=== PATIENT | female | born 1980 | race Caucasian/White ===

== ENCOUNTER 2019-08-22 17:32 | Emergency (ER) | payer OTHER ==
[~2019-08-22] VITALS: Ht 168.9 cm; Wt 108.7 kg
--- NOTE | 2019-08-22 18:03 | PHYS DOC ---
Adult General Chief Complaint Chief Complaint: SKIN RASH/ABSCESS HPI HPI 39-year-old female presents with abscess on the right upper shoulder. She went to urgent care 3 days ago where they lanced the wound and placed her on Bactrim. She does feel like it is getting smaller. The redness that was around it has decreased. It still is angry and there is a palpable firm area. She is also make sure it does not need to be drained again. The patient is leaving town. She was given 10 days of antibiotics. The culture is not back yet. She denies any other injuries or complaints. She has no fever or chills. Review of Systems Review of Systems Constitutional: Denies fever or chills [] Eyes: Denies change in visual acuity, redness, or eye pain [] HENT: Denies nasal congestion or sore throat [] Respiratory: Denies cough or shortness of breath [] Cardiovascular: No additional information not addressed in HPI [] GI: Denies abdominal pain, nausea, vomiting, bloody stools or diarrhea [] : Denies dysuria or hematuria [] Musculoskeletal: Denies back pain or joint pain [] Integument: Abscess right superior shoulder[] Neurologic: Denies headache, focal weakness or sensory changes [] Endocrine: Denies polyuria or polydipsia [] All other systems were reviewed and found to be within normal limits, except as documented in this note. Allergies Allergies Allergies Coded Allergies Type Severity Reaction Last Updated Verified No Known Drug Allergies 08/22/19 No Physical Exam Physical Exam Constitutional: Well developed, well nourished, no acute distress, non-toxic appearance. [] HENT: Normocephalic, atraumatic, bilateral external ears normal, oropharynx moist, no oral exudates, nose normal. [] Eyes: PERRLA, EOMI, conjunctiva normal, no discharge. [] Neck: Normal range of motion, no tenderness, supple, no stridor. [] Cardiovascular:Heart rate regular rhythm, no murmur [] Lungs & Thorax: Bilateral breath sounds clear to auscultation [] Abdomen: Bowel sounds normal, soft, no tenderness, no masses, no pulsatile masses. [] Skin: 1.5 x 4 cm erythematous area of the right superior shoulder with a central hole and mild drainage. No palpable abscess.[] Back: No tenderness, no CVA tenderness. [] Extremities: No tenderness, no cyanosis, no clubbing, ROM intact, no edema. [] Neurologic: Alert and oriented X 3, normal motor function, normal sensory function, no focal deficits noted. [] Psychologic: Affect normal, judgement normal, mood normal. [] EKG EKG [] Radiology/Procedures Radiology/Procedures [] Course & Med Decision Making Course & Med Decision Making Pertinent Labs and Imaging studies reviewed. (See chart for details) I think the patient's abscess is improving. I do not find a drainable area at this time. I will not perform an additional I&D. I think that the antibiotics are working. I told her to follow-up on the culture tomorrow. She is stable for discharge at this time. [] Dragon Disclaimer Dragon Disclaimer This electronic medical record was generated, in whole or in part, using a voice recognition dictation system. Departure Departure: Impression: Primary Impression: Abscess of right shoulder Disposition: 01 HOME, SELF-CARE Condition: STABLE Referrals: OUSMANE NESBITT DO, [facility] (PCP) Patient Instructions: Toan, [id number] JACKY LU DO Aug 22, 2019 18:02
[2019-08-22 18:21] VITALS: BP 138/85
== END 2019-08-22 18:20 | disposition home or self-care (01) ==
LOC: ER 17:32
DX: L02.413 Cutaneous abscess of right upper limb (principal); L53.9 Erythematous condition, unspecified
CPT/HCPCS: 99281